=== PATIENT | male | born 1945 | race Caucasian/White ===

== ENCOUNTER 2020-02-02 09:56 | Day surgery (SDC) | payer MEDICARE ==
[2020-02-01 17:09] VITALS: BMI 20.5
[2020-02-02 10:35] LABS: #Eosinphils 0.2 thou/uL (0.0-0.7); #Monocytes 0.6 thou/uL (0.11-0.59); #Neutrophils 5.3 thou/uL (1.40-6.50); %Basophils 0.6 % (0.0-1.0); %Eosinophils 3.1 % (0.0-10.0); %Lymphocytes 13.5 % (21.0-51.0); %Monocytes 8.8 % (0.0-10.0); %Neutrophils 73.9 % (42.0-75.0); Hemoglobin 10.8 g/dL (14.0-18.0); Mean Corpuscular HGB CONC 32.5 g/dL (32.0-36.0); Mean Corpuscular Hemoglobin 33.8 pg (27.0-31.0); Mean Platelet Volume 6.8 fL (7.4-10.4); Platelet Count 196 thou/uL (130-400); RBC Distribution Width 11.1 % (11.5-14.5); Red Blood Cell (RBC) Count 3.19 mill/uL (4.70-6.10); White Blood Cell (WBC) Count 7.1 thou/uL (4.8-10.8)
[2020-02-02 10:41] LABS: INR-International Normal Ratio 0.9; Prothrombin Time 12.4 sec (12.0-14.7)
[2020-02-02] MEDS ORDERED: Midazolam HCl 2 mg/2 ml Vial ONE (11:15)
[2020-02-02] MEDS ORDERED: Sodium Bicarbonate 2.5 MEQ/5 ML VIAL ONE (11:16)
[2020-02-02] MEDS ORDERED: Fentanyl 100 MCG/2 ML VIAL ONE (11:16)
--- NOTE | 2020-02-02 13:22 | CT ---
Exam: CT-guided biopsy of the proximal left femur. HISTORY: Left lung mass. Evaluate for osseous metastases. Obtain tissue diagnosis. COMPARISON: 01/27/2020. FINDINGS: Successful CT-guided biopsy of the left femur. Lesional tissue is present. Core biopsy/fine-needle as piration with 18-gauge Franseen needle was performed. Two separate passes were made. TECHNIQUE: Consent obtained to perform a CT-guided biopsy of a left mass at the level of the greater trochanter. Patient's skin was prepped and draped in a sterile fashion. 1% lidocaine, buffered with sodium bicarbonate was used for local anesthesia. Under CT guidance, a 17-gauge metallic trocar was advanced into the lesion. Through this trocar, two separate passes with an 18-gauge Franseen needle were performed. Lesional tissue was present. Patient tolerated the procedure well. No immediate or postpro cedure complications. Conscious sedation: 50 mcg of fentanyl IV. Patient was administered contrast sedation and monitored throughout the procedure for approximately 3 0 minutes. IMPRESSION: Successful CT-guided biopsy. Lesional tissue is present. Transcribed Date/Time: 02/02/2020 1:40 PM
== END 2020-02-02 13:45 | disposition home or self-care (01) ==
LOC: RAD 09:56
PROVIDERS: ATTEND Emergency Medicine
PROC: 0QB73ZX Excision of Left Upper Femur, Percutaneous Approach, Diagnostic (ICD-10-PCS; principal; 2020-02-02)
DX: M70.62 Trochanteric bursitis, left hip (principal); R91.8 Other nonspecific abnormal finding of lung field; I48.91 Unspecified atrial fibrillation; Z79.899 Other long term (current) drug therapy
CPT/HCPCS: 20225; 36415; 77012; 85025; 85610; 88172; 88173; 88305; 88341; 88342; J2250; J3010